=== PATIENT | female | born 1970 | race African-American/Black ===

== ENCOUNTER 2017-07-22 05:54 | Day surgery (SDC) | payer MEDICARE, MEDICAID ==
[~2017-07-22] VITALS: Ht 144.8 cm; Wt 43.1 kg
[2017-07-22] MEDS ORDERED: TROPICAMIDE 1% OPHTH DROPS 15ML LEFTEYE ONE (06:10)
[2017-07-22] MEDS ORDERED: PHENYLEPHRINE HCL 10% OPHTH DROPS 5ML LEFTEYE ONE (06:10)
[2017-07-22] MEDS ORDERED: CYCLOPENTOLATE HCL 1% OPHTH DROPS 2ML LEFTEYE ONE (06:10)
[2017-07-22] MEDS ORDERED: LACTATED RINGERS 1,000 ML IV SCH (06:35)
[2017-07-22] MEDS ORDERED: BALANCED SALT IRRIG SOLN COMB1 500ML OP ONE (07:00)
[2017-07-22 07:46] LABS: UCG SCREEN NEGATIVE
[2017-07-22] MEDS ORDERED: MULT-1146 PO (07:52)
[2017-07-22] MEDS ORDERED: CHOL100044 PO (07:52)
[2017-07-22] MEDS ORDERED: HYALURONATE SODIUM 14 MG/ML 0.85ML SYRINGE IO ONE (08:39)
[2017-07-22] MEDS ORDERED: LIDOCAINE HCL 1% 20ML VIAL (Pyxis) INJ ONE (09:19)
[2017-07-22] MEDS ORDERED: PROPOFOL 200MG/20ML VIAL IV ONE ×2 (09:19→09:54)
[2017-07-22] MEDS ORDERED: MEPERIDINE HCL/PF 25MG/ML CPJ IV PRN (09:30)
[2017-07-22] MEDS ORDERED: ONDANSETRON HCL 4MG/2ML VIAL IV PRN (09:30)
[2017-07-22] MEDS ORDERED: LABETALOL HCL 20MG/4ML CARPUJECT IV PRN (09:30)
[2017-07-22] MEDS ORDERED: TETRACAINE 0.5% OPHTH DROPS 4ML ONE (12:08)
[2017-07-22] MEDS ORDERED: BALANCED SALT IRRIG SOLN 15ML ONE (12:08)
[2017-07-22] MEDS ORDERED: PREDNISOLONE ACETATE 1% OPHTH DROPS 1ML ONE (12:08)
[2017-07-22] MEDS ORDERED: NEO/POLYMYX B SULF/DEXAMETH OPHTH OINT 3.5GM ONE (12:08)
[2017-07-22] MEDS ORDERED: LIDOCAINE HCL/PF 2% 20 MG/ML 10ML VIAL ONE (12:08)
[2017-07-22] MEDS ORDERED: CIPROFLOXACIN 0.3% OPHTH SOLN 2.5ML ONE (12:08)
== END 2017-07-22 10:55 | disposition home or self-care (01) ==
LOC: OR 05:54
PROVIDERS: ATTEND Ophthalmology
DX: H25.12 Age-related nuclear cataract, left eye (principal); M79.1 Myalgia; E78.00 Pure hypercholesterolemia, unspecified; F20.89 Other schizophrenia; F31.89 Other bipolar disorder
CPT/HCPCS: 66984; 81025; J3490; J7120; V2632; J2704

== ENCOUNTER 2018-03-05 11:37 | Emergency (ER) | payer MEDICARE, MEDICAID ==
[~2018-03-05] VITALS: Ht 144.8 cm; Wt 43.0 kg
[~2018-03-05 11:37] MED LIST: CHOL100044 PO; MULT-1146 PO
[2018-03-05 12:25] VITALS: BP 126/47
[2018-03-05 12:48] LABS: BASOPHILS % 0.8 % (0.0-2.0); EOSINOPHILS % 1.8 % (0.0-5.0); HEMATOCRIT. 39.2 % (36.0-48.0); HEMOGLOBIN. 13.4 g/dL (12.0-16.0); MEAN CORPUSCULAR HEMOGLOBIN 30.8 pg (28.0-32.0); MEAN PLATELET VOLUME 7.6 fl (7.4-10.4); NEUTROPHILS % 57.4 % (40.0-76.0); PLATELET 281 x1000/uL (130-400); RED BLOOD CELL COUNT 4.36 mill/uL (4.2-5.4); RED CELL DISTRIBUTION WIDTH 12.3 % (11.6-14.6)
[2018-03-05 12:56] LABS: CHLORIDE 105 mEq/L (98-107)
[2018-03-05 13:22] LABS: CLARITY URINE CLEAR (CLEAR); COLOR URINE YELLOW (YELLOW); KETONES URINE NEGATIVE (NEGATIVE); LEUKOCYTE ESTERASE URINE NEGATIVE (NEGATIVE); NITRITE URINE NEGATIVE (NEGATIVE); OCCULT BLOOD URINE TRACE (NEGATIVE); PH URINE 6.5 (4.5-8.0); PROTEIN URINE NEGATIVE (NEGATIVE); SPECIFIC GRAVITY URINE 1.007 (1.005-1.030); UROBILINOGEN URINE 0.2 E.U./dL (0.2-1.0)
== END 2018-03-05 15:00 | disposition home or self-care (01) ==
LOC: ER 11:50
DX: R53.1 Weakness (principal); Z98.890 Other specified postprocedural states
CPT/HCPCS: 36415; 80053; 81003; 81025; 85025; 99284

== ENCOUNTER 2019-06-30 06:09 | Emergency (ER) | payer MEDICARE, MEDICAID ==
[~2019-06-30] VITALS: Ht 144.8 cm; Wt 45.0 kg
[2019-06-30] MEDS ORDERED: HYDROCODONE/ACETAMINOPHEN 5/325MG TABLET PO STA (06:59)
[2019-06-30 08:35] LABS: CLARITY URINE CLEAR (CLEAR); COLOR URINE YELLOW (YELLOW); KETONES URINE NEGATIVE (NEGATIVE); LEUKOCYTE ESTERASE URINE NEGATIVE (NEGATIVE); NITRITE URINE NEGATIVE (NEGATIVE); OCCULT BLOOD URINE 1+ (NEGATIVE); PROTEIN URINE NEGATIVE (NEGATIVE); SPECIFIC GRAVITY URINE 1.006 (1.005-1.030); UROBILINOGEN URINE 0.2 E.U./dL (0.2-1.0)
[2019-06-30 09:41] LABS: BASOPHILS % 0.7 % (0.0-2.0); EOSINOPHILS % 0.7 % (0.0-5.0); HEMATOCRIT. 40.2 % (36.0-48.0); HEMOGLOBIN. 13.6 g/dL (12.0-16.0); LYMPHOCYTES % 21.3 % (20.0-50.0); MEAN CORPUSCULAR HEMOGLOBIN 30.6 pg (28.0-32.0); MEAN CORPUSCULAR VOLUME 90.1 fL (81.0-99.0); MEAN PLATELET VOLUME 8.2 fl (7.4-10.4); MONOCYTES % 5.6 % (2.0-8.0); NEUTROPHILS % 71.7 % (40.0-76.0); PLATELET 255 x1000/uL (130-400); RED BLOOD CELL COUNT 4.46 mill/uL (4.2-5.4); RED CELL DISTRIBUTION WIDTH 12.8 % (11.6-14.6)
[2019-06-30 09:44] VITALS: BP 104/53
[2019-06-30 09:49] LABS: CHLORIDE 109 mEq/L (98-107)
== END 2019-06-30 09:45 | disposition home or self-care (01) ==
LOC: ER 06:09
DX: R10.9 Unspecified abdominal pain (principal)
CPT/HCPCS: 36415; 76700; 81003; 81025; 99284

== ENCOUNTER 2019-11-28 15:22 | Emergency (ER) | payer MEDICARE, MEDICAID ==
[~2019-11-28] VITALS: Ht 144.8 cm; Wt 46.0 kg
[2019-11-29 00:56] VITALS: BP 101/51
== END 2019-11-29 01:47 | disposition home or self-care (01) ==
LOC: ER 15:22
DX: J10.1 Influenza due to other identified influenza virus with other respiratory manifestations (principal)
CPT/HCPCS: 81025; 87804; 99285

== ENCOUNTER → 2020-06-16 | Outpatient (CLI) | payer MEDICARE, MEDICAID | END | disposition home or self-care (01) | LOC: LAB 12:53 | PROVIDERS: ATTEND Ophthalmology | DX: Z01.812 Encounter for preprocedural laboratory examination (principal); Z20.828 Contact with and (suspected) exposure to other viral communicable diseases | CPT/HCPCS: C9803; U0003 ==

== ENCOUNTER 2020-06-20 11:41 | Day surgery (SDC) | payer MEDICARE, MEDICAID ==
[~2020-06-20] VITALS: Ht 144.8 cm; Wt 45.8 kg
[~2020-06-20 11:41] MED LIST changes: +ACET-2708 PO; +BALANCED SALT IRRIG SOLN 15ML ONE; +BALANCED SALT IRRIG SOLN COMB1 500ML OP ONE; +CIPROFLOXACIN 0.3% OPHTH SOLN 2.5ML ONE; +CYCLOPENTOLATE HCL 1% OPHTH DROPS 2ML ONE; +CYCLOPENTOLATE HCL 1% OPHTH DROPS 2ML RIGHTEYE ONE; +IBUP-1653 PO; +LACTATED RINGERS 1,000 ML IV SCH; +LIDOCAINE HCL 2%/EPINEPHRINE 1:100,000 20 ML VIAL INFIL ONE; +PHENYLEPHRINE HCL 10% OPHTH DROPS 5ML ONE; +PHENYLEPHRINE HCL 10% OPHTH DROPS 5ML RIGHTEYE ONE; +PREDNISOLONE ACETATE 1% OPHTH DROPS 5ML ONE; +TETRACAINE 0.5% OPHTH DROPS 4ML ONE; +TROPICAMIDE 1% OPHTH DROPS 15ML ONE; +TROPICAMIDE 1% OPHTH DROPS 15ML RIGHTEYE ONE
[2020-06-20] MEDS ORDERED: HYALURONATE SODIUM 10 MG/ML 0.55ML SYRINGE IO ONE (15:23)
[2020-06-20] MEDS ORDERED: PROPOFOL 200MG/20ML VIAL IV ONE (16:49)
[2020-06-20] MEDS ORDERED: LIDOCAINE HCL/PF 1% 10 MG/ML 5ML VIAL ONE (16:50)
[2020-06-20] MEDS ORDERED: ONDANSETRON HCL 4MG/2ML INJ IV PRN (17:30)
== END 2020-06-20 18:50 | disposition home or self-care (01) ==
LOC: OR 11:41
PROVIDERS: ATTEND Ophthalmology
DX: H25.89 Other age-related cataract (principal); E21.3 Hyperparathyroidism, unspecified; Z79.899 Other long term (current) drug therapy; Z98.890 Other specified postprocedural states
CPT/HCPCS: 66984; J2704; J3490; V2632